=== PATIENT | male | born 1960 | race Caucasian/White ===

== ENCOUNTER 2018-04-22 08:23 | Day surgery (SDC) | payer BC ==
[2018-04-22] MEDS ORDERED: Ringers Lactate 1,000 ML IV ONE (08:32)
[2018-04-22] MEDS ORDERED: LIDOCAINE 1% MPF 5 ML VIAL ONE (10:54)
[2018-04-22] MEDS ORDERED: PROPOFOL 200 MG/20 ML VIAL IV ONE (10:54)
--- NOTE | 2018-04-22 11:30 | ENDO RPT ---
[address], [address] COLONOSCOPY PROCEDURE REPORT EXAM DATE: 04/22/2018 PATIENT NAME: Micky Carter MR #: [id number] BIRTHDATE: 1960 ATTENDING: Dani Pierce DR STATUS: outpatient FIRE LIEUTENANT: Vanessa Neumann and Aleena Munroe RN INDICATIONS: The patient is a 57 yr old Male here for a colonoscopy due to colon cancer screening PROCEDURE PERFORMED: Colonoscopy with biopsy - cold polypectomy MEDICATIONS: Per Anesthesia. ESTIMATED BLOOD LOSS: None CONSENT: The patient understands the risks and benefits of the procedure and understands that these risks include, but are not limited to: sedation, allergic reaction, infection, perforation and/or bleeding. Alternative means of evaluation and treatment include, among others: physical exam, x-rays, and/or surgical intervention. The patient elects to proceed with this endoscopic procedure. DESCRIPTION OF PROCEDURE: During intra-op preparation period all mechanical medical equipment was checked for proper function. Hand hygiene and appropriate measures for infection prevention was taken. Procedure, possible complications, alternatives including, but not limited to possibility of bleeding, perforation, tear, infection, sepsis, need for surgery, need for blood transfusion, were explained to the patient. After the risks, benefits and alternatives of the procedure were thoroughly explained, Informed consent was verified, confirmed and timeout was successfully executed by the treatment team. The patient was placed in the left lateral position. A digital rectal exam was performed and revealed an enlarged prostate. After appropriate level of anesthesia, the scope was passed. The Pentax [id number] ([id number]) endoscope was introduced through the anus and advanced to the cecum, which was identified by the ileocecal valve. The quality of the prep was fair. The instrument was then slowly withdrawn as the colon was fully examined. Scope withdrawal time was 10 minutes. COLON FINDINGS: A small smooth semi-pedunculated polyp with a friable surface was found in the sigmoid colon. A polypectomy was performed with cold forceps. The resection was complete, the polyp tissue was completely retrieved and sent to histology. A large sized patch of abnormal mucosa was found in the rectum. The mucosa had petechiae. A biopsy was performed using cold forceps. Retroflexed views revealed no abnormalities. The scope was then completely withdrawn from the patient and the procedure terminated. ADVERSE EVENTS: There were no complications. IMPRESSIONS: 1. Small semi-pedunculated polyp was found in the sigmoid colon; polypectomy was performed with cold forceps 2. Large sized abnormal mucosa was found in the rectum; The mucosa had petechiae; biopsy was performed using cold forceps RECOMMENDATIONS: 1. avoid NSAIDS for 2 weeks 2. await biopsy results 3. follow-up: office 2 week(s) 4. increase dietary water 5. fiber rich diet 6. yearly hemoccult starting in 4 years RECALL: Return in 5 year(s) for Colonoscopy, pending biopsy results. Dani Pierce DR eSigned: Dani Pierce DR 04/22/2018 11:30 AM cc: CPT CODES: ICD9 CODES: 1. 600.0 Hypertrophy (benign) of prostate 2. 569.89 Other specified disorders of intestines 3. 211.3 Benign neoplasm of colon PATIENT NAME: Micky Carter MR#: [id number]
== END 2018-04-22 11:59 | disposition home or self-care (01) ==
LOC: OR 08:23
PROVIDERS: ATTEND Surgery
PROC: 0DBN8ZX Excision of Sigmoid Colon, Via Natural or Artificial Opening Endoscopic, Diagnostic (ICD-10-PCS; 2018-04-22)
PROC: 0DBP8ZX Excision of Rectum, Via Natural or Artificial Opening Endoscopic, Diagnostic (ICD-10-PCS; principal; 2018-04-22 11:15)
DX: Z12.11 Encounter for screening for malignant neoplasm of colon (principal); D12.5 Benign neoplasm of sigmoid colon; N40.0 Benign prostatic hyperplasia without lower urinary tract symptoms; R23.3 Spontaneous ecchymoses; Z21 Asymptomatic human immunodeficiency virus [HIV] infection status; Z88.0 Allergy status to penicillin; Z88.7 Allergy status to serum and vaccine; Z87.891 Personal history of nicotine dependence; Z80.0 Family history of malignant neoplasm of digestive organs; Z82.3 Family history of stroke; Z80.42 Family history of malignant neoplasm of prostate; Z82.61 Family history of arthritis
CPT/HCPCS: 88305